=== PATIENT | female | born 1960 | race Caucasian/White ===

== ENCOUNTER 2019-05-23 12:40 | Day surgery (SDC) | payer BC ==
[~2019-05-23] VITALS: Ht 144.8 cm; Wt 47.0 kg
[~2019-05-23 12:40] MED LIST: PROPOFOL 10 MG/ML, 20ML ONE
[2019-05-23] MEDS ORDERED: PLEASE ENTER HEIGHT AND WEIGHT MC SCH (14:00)
[2019-05-23] MEDS ORDERED: SODIUM CHLORIDE 0.9% 1,000 ML IV ONE (14:00)
[2019-05-23] MEDS ORDERED: ROSU10TA26 PO (14:00)
[2019-05-23] MEDS ORDERED: VALS1TAB25 PO (14:02)
[2019-05-23 14:06] VITALS: BP 135/50
== END 2019-05-23 16:38 | disposition home or self-care (01) ==
LOC: CACL 12:40
PROVIDERS: ATTEND Internal Medicine Cardiovascular Disease
DX: I08.0 Rheumatic disorders of both mitral and aortic valves (principal); I10 Essential (primary) hypertension
CPT/HCPCS: 93312; 93325; J2704

== ENCOUNTER 2019-07-23 08:58 | Inpatient (IN) | payer BC ==
[~2019-07-23] VITALS: Ht 144.8 cm; Wt 52.3 kg
[~2019-07-23 08:58] MED LIST changes: -PROPOFOL 10 MG/ML, 20ML ONE; +ROSU10TA26 PO; +VALS1TAB25 PO
[2019-07-23 09:21] VITALS: BP 120/61
[2019-07-23] MEDS ORDERED: PLEASE ENTER HEIGHT AND WEIGHT MC SCH (09:30)
[2019-07-23 09:46] LABS: MEAN CORPUSCULAR HEMOGLOBIN 31.1 pg (27.0-34.8); MEAN CORPUSCULAR HGB CONC 34.1 g/dL (32.4-35.8); MEAN CORPUSCULAR VOLUME 91.1 fL (80-100); MEAN PLATELET VOLUME 8.4 fL (7.4-10.4); PLATELET COUNT 186 x10^3/uL (130-400); RED BLOOD COUNT 4.58 x10^6/uL (3.82-5.3); RED CELL DISTRIBUTION WIDTH 13.1 % (9.6-15.2)
[2019-07-23 09:55] LABS: ANION GAP 5 mmol/L (5-15); CALCIUM 8.8 mg/dL (8.5-10.1); CHLORIDE 107 mmol/L (98-107); CREATININE 0.65 mg/dL (0.55-1.02)
[2019-07-23 10:02] LABS: MD YES
[2019-07-23 10:04] LABS: BAND#(MANUAL) 0.05 x10^3/uL; BANDS%(MANUAL) 1 % (0-7); BASOS#(MANUAL) 0.05 x10^3/uL (0-0.1); BASOS% (MANUAL) 1 % (0-1); EOS#(MANUAL) 0.23 x10^3/uL (0.0-0.4); EOS% (MANUAL) 5 % (1-7); LYMPH#(MANUAL) 1.85 x10^3/uL (1-3.4); LYMPHS% (MANUAL) 41 % (22-44); MONOS#(MANUAL) 0.32 x10^3/uL (0.3-2.7); MONOS% (MANUAL) 7 % (2-9); SEG#(MANUAL) 2.03 x10^3/uL (1.8-6.8); SEGS% (MANUAL) 45 % (42-75)
[2019-07-23 10:05] LABS: <PLATELET ESTIMATE> ADEQUATE; <PLT MORPHOLOGY> NORMAL PLT MORPH; <RBC MORPHOLOGY> NORMAL
[2019-07-23] MEDS ORDERED: FENTANYL PF 100 MCG/2ML ONE ×2 (10:42→12:32)
[2019-07-23] MEDS ORDERED: MIDAZOLAM 1 MG/ML, 2ML ONE ×2 (10:42→12:44)
[2019-07-23] MEDS ORDERED: LIDOCAINE 2%, 20ML ONE (10:42)
[2019-07-23] MEDS ORDERED: VERAPAMIL 2.5 MG/ML, 2ML ONE (12:00)
[2019-07-23] MEDS ORDERED: HEPARIN 1,000 UNITS/ML, 10ML ONE (12:00)
[2019-07-23] MEDS: SODIUM CHLORIDE 0.9% 1,000 ML IV SCH ×7 (13:21→22:54)
[2019-07-23] MEDS ORDERED: HEPARIN 5,000 UNITS/ML, 1ML IV PRN (15:00)
[2019-07-23] MEDS ORDERED: HEPARIN 25,000 UNITS/250ML PMX 250 ML IV PRN (15:00)
[2019-07-23] MEDS: HYDROCHLOROTHIAZIDE 12.5 MG CAPSULE PO SCH (15:13)
[2019-07-23] MEDS: LOSARTAN 100 MG TAB PO SCH (15:53)
[2019-07-23] MEDS: ACETAMINOPHEN 325 MG TABLET PO PRN (18:44)
[2019-07-23 20:44] VITALS: BP 103/65
[2019-07-23] MEDS: ASPIRIN 81 MG TABLET EC PO SCH (21:00)
[2019-07-23] MEDS: ATORVASTATIN 40 MG TABLET PO SCH (21:00)
[2019-07-24 00:43] VITALS: BP 104/57
[2019-07-24] MEDS: SODIUM CHLORIDE 0.9% 1,000 ML IV SCH ×5 (01:03→22:01)
[2019-07-24 06:19] LABS: ANION GAP 13 mmol/L (5-15); CALCIUM 7.9 mg/dL (8.5-10.1); CHLORIDE 106 mmol/L (98-107)
[2019-07-24 06:22] LABS: CREATININE 0.48 mg/dL (0.55-1.02)
[2019-07-24 06:46] VITALS: BP 95/54
[2019-07-24] MEDS: LOSARTAN 100 MG TAB PO SCH (09:00)
[2019-07-24] MEDS: HYDROCHLOROTHIAZIDE 12.5 MG CAPSULE PO SCH (09:19)
[2019-07-24] MEDS: ASPIRIN 81 MG TABLET EC PO SCH (09:19)
[2019-07-24] MEDS ORDERED: BUPIVACAINE/PF-EPI 0.5% 1:200K ONE (09:55)
[2019-07-24] MEDS ORDERED: THROMBIN 20,000 UNIT VIAL TP ONE (09:56)
[2019-07-24] MEDS ORDERED: HEPARIN 1,000 UNITS/ML, 10ML ONE (09:56)
[2019-07-24] MEDS ORDERED: CHLORHEXIDINE 15 ML UDC MM STA (11:16)
[2019-07-24] MEDS ORDERED: FENTANYL PF 250 MCG/5ML ONE (11:54)
[2019-07-24] MEDS ORDERED: SUCCINYLCHOLINE 20 MG/ML, 10ML ONE (11:56)
[2019-07-24] MEDS ORDERED: PROPOFOL 10 MG/ML, 20ML ONE (11:59)
[2019-07-24] MEDS ORDERED: PHENYLEPHRINE 10 MG/ML ONE (11:59)
[2019-07-24] MEDS ORDERED: EPINEPHRINE 1 MG/ML, 1ML ONE (12:16)
[2019-07-24] MEDS ORDERED: ROCURONIUM 10 MG/ML,10ML ONE (12:16)
[2019-07-24] MEDS ORDERED: EPHEDRINE 50 MG/ML, 1ML ONE (12:16)
[2019-07-24] MEDS ORDERED: CEFAZOLIN 1,000 MG ONE (12:16)
[2019-07-24] MEDS ORDERED: DEXAMETHASONE 4 MG/ML, 1ML ONE ×2 (12:31)
[2019-07-24] MEDS ORDERED: BUPIVACAINE/PF-EPI 0.5% 1:200K INFIL ONE (12:56)
[2019-07-24] MEDS ORDERED: HEPARIN 1,000 UNITS/ML, 10ML IV ONE (12:56)
[2019-07-24] MEDS ORDERED: MEPERIDINE/PF 25MG/ML,1ML IVPush PRN (13:00)
[2019-07-24] MEDS ORDERED: ACETAMINOPHEN 325 MG TABLET PO PRN (13:00)
[2019-07-24] MEDS ORDERED: LABETALOL 5MG/ML, 20ML IV PRN (13:00)
[2019-07-24] MEDS ORDERED: PROMETHAZINE 25 MG/ML, 1ML IV PRN (13:00)
[2019-07-24] MEDS ORDERED: HYDROmorphone 2 MG/ML, 1ML IVPush PRN (13:00)
[2019-07-24] MEDS ORDERED: FENTANYL PF 100 MCG/2ML IV PRN (13:00)
[2019-07-24] MEDS ORDERED: ONDANSETRON 2MG/ML, 2ML IV PRN (13:00)
[2019-07-24] MEDS ORDERED: hydrALAzine 20 MG/ML, 1ML IV PRN (13:00)
[2019-07-24] MEDS ORDERED: OXYcodone 5 MG/5 ML ORAL.SOL UDC PO PRN (13:00)
[2019-07-24] MEDS ORDERED: SUGAMMADEX 200 MG/2 ML IVPush ONE (14:06)
[2019-07-24] MEDS ORDERED: ONDANSETRON 2MG/ML, 2ML ONE (14:07)
[2019-07-24] MEDS ORDERED: PROTAMINE SULFATE 10 MG/ML, 25ML ONE (14:12)
[2019-07-24] MEDS: CLOPIDOGREL 75 MG TABLET PO SCH (15:09)
[2019-07-24 15:59] VITALS: BP 132/67
[2019-07-24 20:27] VITALS: BP 115/55
[2019-07-24] MEDS: ATORVASTATIN 40 MG TABLET PO SCH (22:00)
[2019-07-25 02:43] VITALS: BP 116/60
[2019-07-25] MEDS: SODIUM CHLORIDE 0.9% 1,000 ML IV SCH (05:43)
[2019-07-25 07:47] VITALS: BP 108/47
[2019-07-25] MEDS: ASPIRIN 81 MG TABLET EC PO SCH (08:42)
[2019-07-25] MEDS: LOSARTAN 50MG TABLET PO SCH (08:43)
[2019-07-25] MEDS: CLOPIDOGREL 75 MG TABLET PO SCH (08:43)
[2019-07-25] MEDS: HYDROCHLOROTHIAZIDE 12.5 MG CAPSULE PO SCH (08:44)
[2019-07-25 12:41] VITALS: BP 114/59
[2019-07-25] MEDS ORDERED: POLYETHYLENE GLYCOL 17 GM PACKET PO ONE (16:00)
[2019-07-25] MEDS ORDERED: DOCUSATE 100 MG CAPSULE PO PRN (16:00)
[2019-07-25] MEDS ORDERED: FUROSEMIDE 40 MG/4 ML IV ONE (16:30)
[2019-07-25] MEDS ORDERED: GUAIFENESIN/DM 200-20MG, 10ML UDC PO PRN (16:30)
[2019-07-25 19:51] VITALS: BP 114/61
[2019-07-25] MEDS ORDERED: POTASSIUM CHLORIDE 20 MEQ PACKET PO SCH (21:00)
[2019-07-25] MEDS: ATORVASTATIN 40 MG TABLET PO SCH (21:12)
[2019-07-26 01:09] VITALS: BP 117/57
[2019-07-26] MEDS: ACETAMINOPHEN 325 MG TABLET PO PRN (06:48)
[2019-07-26 07:59] VITALS: BP 113/57
[2019-07-26] MEDS: LOSARTAN 50MG TABLET PO SCH (08:33)
[2019-07-26] MEDS: CLOPIDOGREL 75 MG TABLET PO SCH (08:34)
[2019-07-26] MEDS: ASPIRIN 81 MG TABLET EC PO SCH (08:34)
[2019-07-26] MEDS: HYDROCHLOROTHIAZIDE 12.5 MG CAPSULE PO SCH (08:34)
[2019-07-26] MEDS ORDERED: CLOP75TA PO (10:14)
[2019-07-26] MEDS ORDERED: ACET325T26 PO (10:14)
[2019-07-26] MEDS ORDERED: ASPI81TA45 PO (10:14)
== END 2019-07-26 12:46 | disposition home or self-care (01) | DRG 286 ==
LOC: CACL 08:58 → ORIP 13:21 → 5SO 14:00
PROVIDERS: ADMIT Internal Medicine Cardiovascular Disease; ATTEND Internal Medicine Cardiovascular Disease
PROC: 4A023N8 Measurement of Cardiac Sampling and Pressure, Bilateral, Percutaneous Approach (ICD-10-PCS; principal; 2019-07-23)
PROC: B2111ZZ Fluoroscopy of Multiple Coronary Arteries using Low Osmolar Contrast (ICD-10-PCS; 2019-07-23)
PROC: B2151ZZ Fluoroscopy of Left Heart using Low Osmolar Contrast (ICD-10-PCS; 2019-07-23)
PROC: B2161ZZ Fluoroscopy of Right and Left Heart using Low Osmolar Contrast (ICD-10-PCS; 2019-07-24)
PROC: B4101ZZ Fluoroscopy of Abdominal Aorta using Low Osmolar Contrast (ICD-10-PCS; 2019-07-24)
PROC: B41D1ZZ Fluoroscopy of Aorta and Bilateral Lower Extremity Arteries using Low Osmolar Contrast (ICD-10-PCS; 2019-07-24)
PROC: B24BZZ3 Ultrasonography of Heart with Aorta, Intravascular (ICD-10-PCS; 2019-07-24)
PROC: B44LZZ3 Ultrasonography of Femoral Artery, Intravascular (ICD-10-PCS; 2019-07-24)
DX: I08.3 Combined rheumatic disorders of mitral, aortic and tricuspid valves (principal); I77.72 Dissection of iliac artery; E78.5 Hyperlipidemia, unspecified; M19.90 Unspecified osteoarthritis, unspecified site; I50.9 Heart failure, unspecified; M41.9 Scoliosis, unspecified; I11.0 Hypertensive heart disease with heart failure; Z79.899 Other long term (current) drug therapy
CPT/HCPCS: 36415; 37252; 93460; J3490; 37221; 75630; 76937; 80048; 82962; 85025; 85520; 99156; 99157; C1725; C1760; C1769; C1894; G0378; J0171; J0690; J1100; J1644; J2250; J2405; J2704; J2720; J3010; C1751; C1753; C1876; J0330; J2370; J7030; Q9967

== ENCOUNTER 2019-09-20 11:30 | Inpatient (IN) | payer BC ==
[~2019-09-20] VITALS: Ht 144.8 cm; Wt 41.5 kg
[~2019-09-20 11:30] MED LIST changes: +ACET325T26 PO; +ASPI81TA45 PO; +CLOP75TA PO
[2019-09-20] MEDS ORDERED: MULT-658 PO (12:52)
[2019-09-20] MEDS ORDERED: ASPI-496 PO (12:52)
[2019-09-20] MEDS ORDERED: LACT1CAP35 PO (12:52)
[2019-09-20] MEDS ORDERED: VALS1TAB25 PO (12:52)
[2019-09-20 13:26] LABS: MICROSCOPIC INDICATED
[2019-09-20 13:35] LABS: BASOPHILS # (AUTO) 0.04 x10^3/uL (0-0.1); BASOPHILS % (AUTO) 1 % (0-1); EOSINOPHILS # (AUTO) 0.13 x10^3/uL (0-0.4); EOSINOPHILS % (AUTO) 2 % (1-7); LYMPHOCYTES # (AUTO) 1.74 x10^3/uL (1-3.4); LYMPHOCYTES % (AUTO) 29 % (22-44); MD NO; MEAN CORPUSCULAR HEMOGLOBIN 30.4 pg (27.0-34.8); MEAN CORPUSCULAR VOLUME 92.2 fL (80-100); MEAN PLATELET VOLUME 8.5 fL (7.4-10.4); MONOCYTES # (AUTO) 0.47 x10^3/uL (0.2-0.8); MONOCYTES % (AUTO) 8 % (2-9); NEUTROPHILS # (AUTO) 3.71 x10^3/uL (1.8-6.8); NEUTROPHILS % (AUTO) 61 % (42-75); PLATELET COUNT 213 x10^3/uL (130-400); RED BLOOD COUNT 4.72 x10^6/uL (3.82-5.3); RED CELL DISTRIBUTION WIDTH 13.5 % (9.6-15.2)
[2019-09-20 13:43] LABS: INTERNATIONAL NORMALIZED RATIO 0.96 (0.93-1.1); PROTHROMBIN TIME 10.2 Seconds (9.6-11.5)
[2019-09-20 13:45] LABS: ALANINE AMINOTRANSFERASE 26 U/L (12-78); ALBUMIN 3.9 g/dL (3.4-5.0); ANION GAP 5 mmol/L (5-15); CALCIUM 8.7 mg/dL (8.5-10.1); CHLORIDE 104 mmol/L (98-107); CREATININE 0.77 mg/dL (0.55-1.02)
[2019-09-20 13:47] LABS: ALKALINE PHOSPHATASE 81 U/L (45-117); BILIRUBIN,TOTAL 0.4 mg/dL (0.2-1.0); TOTAL PROTEIN 7.7 g/dL (6.4-8.2)
[2019-09-21 04:57] VITALS: BP_SYST 145; BP_SYST 146; BP_DIAS 70; BP_DIAS 72
[2019-09-21] MEDS ORDERED: CHLORHEXIDINE 15 ML UDC MM SCH (05:00)
[2019-09-21] MEDS ORDERED: DO NOT GIVE MC SCH (05:00)
[2019-09-21] MEDS ORDERED: DO NOT GIVE XX SCH (05:00)
[2019-09-21] MEDS ORDERED: INSULIN LISPRO 100 UNITS/ML, PEN SQ-INSULIN SCH (05:00)
[2019-09-21] MEDS: MUPIROCIN OINT 2%, 22GM TP SCH ×2 (06:03→20:24)
[2019-09-21] MEDS ORDERED: FENTANYL PF 250 MCG/5ML ONE ×4 (06:42)
[2019-09-21] MEDS ORDERED: MIDAZOLAM 10MG/2 ML ONE (06:42)
[2019-09-21] MEDS ORDERED: PHENYLEPHRINE 50 MG in SODIUM CHLORIDE 0.9% 245 ML IV PRN ×2 (07:09→07:30)
[2019-09-21] MEDS ORDERED: REGULAR INSULIN 100 UNITS in SODIUM CHLORIDE 0.9% 99 ML IV PRN ×2 (07:09→07:30)
[2019-09-21] MEDS ORDERED: VASOPRESSIN 20 UNIT in SODIUM CHLORIDE 0.9% 99 ML IV PRN (07:09)
[2019-09-21] MEDS ORDERED: DOBUTAMINE 250 MG in SODIUM CHLORIDE 0.9% 230 ML IV PRN (07:09)
[2019-09-21] MEDS ORDERED: SODIUM CHLORIDE 0.9% 1,000 ML IV PRN (07:09)
[2019-09-21] MEDS ORDERED: VANCOMYCIN 700 MG in SODIUM CHLORIDE 0.9% 250 ML IVPB SCH (07:09)
[2019-09-21] MEDS ORDERED: NITROGLYCERIN/D5W PMX 250 ML IV PRN (07:09)
[2019-09-21] MEDS ORDERED: DEXMEDETOMIDINE 200 MCG in SODIUM CHLORIDE 0.9% 48 ML IV PRN ×2 (07:09→07:30)
[2019-09-21] MEDS ORDERED: GLUCAGON 1 MG IM PRN (07:30)
[2019-09-21] MEDS ORDERED: morphine SULFATE 10 MG/ML, 1ML IVPush PRN (07:30)
[2019-09-21] MEDS ORDERED: BISACODYL 10 MG SUPP PR PRN (07:30)
[2019-09-21] MEDS ORDERED: LACTATED RINGERS 1,000 ML IV PRN (07:30)
[2019-09-21] MEDS ORDERED: SODIUM BICARB 8.4%, 50ML SYRINGE IV PRN (07:30)
[2019-09-21] MEDS ORDERED: INSULIN REGULAR 100 UNITS/ML, 3ML VIAL IVPush PRN (07:30)
[2019-09-21] MEDS ORDERED: HYDROcodone/APAP 5/325 TABLET PO PRN (07:30)
[2019-09-21] MEDS ORDERED: DEXTROSE 50%, 50ML SYRINGE IVPush PRN (07:30)
[2019-09-21] MEDS ORDERED: CEFUROXIME 1.5 GM in SODIUM CHLORIDE 0.9% 50 ML IVPB PRN (07:30)
[2019-09-21] MEDS ORDERED: VANCOMYCIN 700 MG in SODIUM CHLORIDE 0.9% 250 ML IV PRN (07:30)
[2019-09-21] MEDS ORDERED: POTASSIUM CHLORIDE 80 MEQ, SODIUM BICARBONATE 8.4% 10 MEQ, MAGNESIUM SULFATE 0.5 GM, LI... IV PRN (07:30)
[2019-09-21] MEDS ORDERED: MIDAZOLAM 1 MG/ML, 5ML IVPush PRN (07:30)
[2019-09-21] MEDS ORDERED: MANNITOL PMX 20% 500 ML IVPB PRN (07:30)
[2019-09-21] MEDS ORDERED: ACETAMINOPHEN 650 MG SUPP PR PRN (07:30)
[2019-09-21] MEDS ORDERED: DEXTROSE 4 GM TAB.CHEW PO PRN (07:30)
[2019-09-21] MEDS ORDERED: EPINEPHRINE 5 MG in SODIUM CHLORIDE 0.9% 245 ML IV PRN ×2 (07:30)
[2019-09-21] MEDS ORDERED: ALBUMIN HUMAN 5% 500 ML IV PRN (07:30)
[2019-09-21] MEDS ORDERED: PROPOFOL 10 MG/ML, 20ML ONE (08:28)
[2019-09-21] MEDS ORDERED: AMIODARONE 50 MG/ML, 3ML ONE ×2 (08:28→09:53)
[2019-09-21] MEDS ORDERED: PROTAMINE SULFATE 10 MG/ML, 25ML ONE (08:28)
[2019-09-21] MEDS ORDERED: ROCURONIUM 10MG/ML,5ML ONE ×2 (08:29)
[2019-09-21] MEDS ORDERED: AMINOCAPROIC ACID 250 MG/ML, 20ML ONE ×2 (08:29)
[2019-09-21] MEDS ORDERED: ESMOLOL 100 MG/10 ML ONE (08:30)
[2019-09-21] MEDS: MUPIROCIN OINT 2%, 22GM NAS SCH ×2 (09:00→20:24)
[2019-09-21] MEDS: DOCUSATE 100 MG CAPSULE PO SCH ×2 (09:00→20:27)
[2019-09-21] MEDS ORDERED: CALCIUM CHLORIDE 10%, 10ML SYR ONE (10:28)
[2019-09-21] MEDS ORDERED: SODIUM BICARBONATE 1 MEQ/ML, 50ML VIAL ONE (10:58)
[2019-09-21] MEDS ORDERED: ALBUMIN HUMAN 25% 50 ML ONE (10:59)
[2019-09-21] MEDS: KSCALE TO 4.5 IV SCH ×3 (11:00→23:30)
[2019-09-21] MEDS ORDERED: methylPREDNISolone SOD SUCC 125 MG/2 ML ONE (11:00)
[2019-09-21] MEDS ORDERED: HEPARIN 1,000 UNITS/ML, 30ML ONE ×3 (11:01)
[2019-09-21] MEDS ORDERED: LIDOCAINE 2%, 20ML ONE (11:02)
[2019-09-21 11:16] LABS: GLUCOSE BY BLOOD GAS ANALYZER 148 mg/dL (70-110); HEMOGLOBIN BY BLOOD GAS ANALYZ 11.3 g/dL (14.0-18.0); POTASSIUM BY BLOOD GAS ANALYZR 3.2 mmol/L (3.6-5.5)
[2019-09-21 11:31] LABS: INTERNATIONAL NORMALIZED RATIO 1.33 (0.93-1.1); PROTHROMBIN TIME 14.1 Seconds (9.6-11.5)
[2019-09-21] MEDS ORDERED: POTASSIUM CHLORIDE 30 MEQ in SODIUM CHLORIDE 0.9% 100 ML IV ONE (12:00)
[2019-09-21] MEDS: WARFARIN MODERAT DOSE PROTOCOL XX SCH (12:00)
[2019-09-21] MEDS: SODIUM CHLORIDE FLUSH 10ML SYR IVF SCH ×4 (12:20→20:23)
[2019-09-21] MEDS: INSULIN LISPRO 100 UNITS/ML, PEN SQ-INSULIN SCH ×3 (12:20→20:16)
[2019-09-21] MEDS: MAGNESIUM SULFATE 1 GM in SODIUM CHLORIDE 0.9% 100 ML IVPB SCH (12:57)
[2019-09-21] MEDS: FENTANYL PF 100 MCG/2ML IVPush PRN ×2 (13:19→15:00)
[2019-09-21] MEDS: ONDANSETRON 2MG/ML, 2ML IVPush PRN ×2 (14:59→19:06)
[2019-09-21] MEDS: OXYcodone IR 5MG TABLET PO PRN ×2 (17:05→22:44)
[2019-09-21] MEDS: CEFUROXIME 1.5 GM in SODIUM CHLORIDE 0.9% 50 ML IVPB SCH (19:08)
[2019-09-21] MEDS ORDERED: POTASSIUM CHLORIDE PMX 100 ML IV ONE (19:30)
[2019-09-21] MEDS ORDERED: KETOROLAC 30 MG/1 ML IVPush ONE (20:30)
[2019-09-21] MEDS: VANCOMYCIN 700 MG in SODIUM CHLORIDE 0.9% 250 ML IV SCH (21:13)
[2019-09-21] MEDS: PROCHLORPERAZINE 5 MG/ML, 2ML IVPush PRN (21:21)
[2019-09-22] MEDS: OXYcodone IR 5MG TABLET PO PRN (03:57)
[2019-09-22 04:00] VITALS: BP 118/73
[2019-09-22 04:26] LABS: MEAN CORPUSCULAR HEMOGLOBIN 30.4 pg (27.0-34.8); MEAN CORPUSCULAR HGB CONC 33.1 g/dL (32.4-35.8); MEAN CORPUSCULAR VOLUME 91.9 fL (80-100); MEAN PLATELET VOLUME 8.7 fL (7.4-10.4); PLATELET COUNT 98 x10^3/uL (130-400); RED CELL DISTRIBUTION WIDTH 13.8 % (9.6-15.2)
[2019-09-22 04:30] LABS: INTERNATIONAL NORMALIZED RATIO 1.01 (0.93-1.1); PROTHROMBIN TIME 10.7 Seconds (9.6-11.5)
[2019-09-22 04:36] LABS: ALBUMIN 3.2 g/dL (3.4-5.0); ANION GAP 5 mmol/L (5-15); CALCIUM 7.7 mg/dL (8.5-10.1); CHLORIDE 109 mmol/L (98-107); CREATININE 0.42 mg/dL (0.55-1.02)
[2019-09-22 05:52] LABS: BASOPHILS % (AUTO) 0 % (0-1); EOSINOPHILS % (AUTO) 0 % (1-7); LYMPHOCYTES # (AUTO) 0.76 x10^3/uL (1-3.4); LYMPHOCYTES % (AUTO) 5 % (22-44); MD SCAN; MONOCYTES # (AUTO) 0.45 x10^3/uL (0.2-0.8); MONOCYTES % (AUTO) 3 % (2-9); NEUTROPHILS # (AUTO) 12.91 x10^3/uL (1.8-6.8); NEUTROPHILS % (AUTO) 91 % (42-75)
[2019-09-22] MEDS: KSCALE TO 4.5 IV SCH (06:18)
[2019-09-22] MEDS ORDERED: POTASSIUM CHLORIDE PMX 100 ML IV ONE (06:30)
[2019-09-22] MEDS: INSULIN LISPRO 100 UNITS/ML, PEN SQ-INSULIN SCH ×4 (08:04→20:56)
[2019-09-22] MEDS ORDERED: CALCIUM CARBONATE 500 MG TAB.CHEW PO PRN (08:30)
[2019-09-22] MEDS ORDERED: KETOROLAC 30 MG/1 ML IVPush ONE (08:30)
[2019-09-22] MEDS: CEFUROXIME 1.5 GM in SODIUM CHLORIDE 0.9% 50 ML IVPB SCH (09:06)
[2019-09-22] MEDS: MAGNESIUM SULFATE 1 GM in SODIUM CHLORIDE 0.9% 100 ML IVPB SCH (09:08)
[2019-09-22] MEDS: MUPIROCIN OINT 2%, 22GM NAS SCH ×2 (09:29→20:47)
[2019-09-22] MEDS: ASPIRIN 81 MG TABLET EC PO SCH (09:29)
[2019-09-22] MEDS: DOCUSATE 100 MG CAPSULE PO SCH ×2 (09:29→20:46)
[2019-09-22] MEDS: OMEPRAZOLE 20 MG CAPSULE.DR PO SCH (09:29)
[2019-09-22] MEDS: SODIUM CHLORIDE FLUSH 10ML SYR IVF SCH ×4 (09:29→21:00)
[2019-09-22] MEDS: CHLORHEXIDINE 15 ML UDC MM SCH ×2 (09:30→20:45)
[2019-09-22] MEDS: WARFARIN BIOPROSTHETIC VALVE PROTOCOL 2-3 XX SCH (09:30)
[2019-09-22] MEDS: MUPIROCIN OINT 2%, 22GM TP SCH (09:30)
[2019-09-22] MEDS: FUROSEMIDE 20 MG/2 ML IV SCH (09:44)
[2019-09-22] MEDS: VANCOMYCIN 700 MG in SODIUM CHLORIDE 0.9% 250 ML IV SCH (10:19)
[2019-09-22] MEDS: WARFARIN MODERAT DOSE PROTOCOL XX SCH (11:26)
[2019-09-22] MEDS: HYDROcodone/APAP 10/325 MG TABLET PO PRN ×2 (13:15→20:47)
[2019-09-22] MEDS: POTASSIUM CHLORIDE 10 MEQ TABLET.ER PO SCH (17:16)
[2019-09-22] MEDS ORDERED: WARFARIN 7.5 MG TABLET PO-COUM ONE (18:00)
[2019-09-22 20:19] VITALS: BP 137/80
[2019-09-22] MEDS ORDERED: MELATONIN 3 MG TABLET PO PRN (20:30)
[2019-09-23] VITALS: BP 113/72
[2019-09-23] MEDS: ONDANSETRON 2MG/ML, 2ML IVPush PRN ×3 (01:40→17:03)
[2019-09-23] MEDS: HYDROcodone/APAP 10/325 MG TABLET PO PRN ×2 (02:51→08:11)
[2019-09-23] MEDS: ACETAMINOPHEN 325 MG TABLET PO PRN (03:49)
[2019-09-23 04:44] LABS: INTERNATIONAL NORMALIZED RATIO 1.07 (0.93-1.1); PROTHROMBIN TIME 11.4 Seconds (9.6-11.5)
[2019-09-23 04:47] LABS: ANION GAP 5 mmol/L (5-15); CALCIUM 7.5 mg/dL (8.5-10.1); CHLORIDE 96 mmol/L (98-107)
[2019-09-23 04:48] LABS: CREATININE 0.39 mg/dL (0.55-1.02); MEAN CORPUSCULAR HEMOGLOBIN 30.6 pg (27.0-34.8); MEAN CORPUSCULAR HGB CONC 33.4 g/dL (32.4-35.8); MEAN CORPUSCULAR VOLUME 91.8 fL (80-100); MEAN PLATELET VOLUME 8.7 fL (7.4-10.4); PLATELET COUNT 84 x10^3/uL (130-400); RED BLOOD COUNT 3.35 x10^6/uL (3.82-5.3); RED CELL DISTRIBUTION WIDTH 13.4 % (9.6-15.2)
[2019-09-23] MEDS: OMEPRAZOLE 20 MG CAPSULE.DR PO SCH (05:08)
[2019-09-23 05:17] LABS: BASOPHILS # (AUTO) 0.03 x10^3/uL (0-0.1); BASOPHILS % (AUTO) 0 % (0-1); EOSINOPHILS # (AUTO) 0.01 x10^3/uL (0-0.4); EOSINOPHILS % (AUTO) 0 % (1-7); LYMPHOCYTES # (AUTO) 1.15 x10^3/uL (1-3.4); LYMPHOCYTES % (AUTO) 9 % (22-44); MONOCYTES # (AUTO) 0.61 x10^3/uL (0.2-0.8); MONOCYTES % (AUTO) 5 % (2-9); NEUTROPHILS # (AUTO) 11.48 x10^3/uL (1.8-6.8); NEUTROPHILS % (AUTO) 87 % (42-75)
[2019-09-23 05:18] LABS: MD SCAN
[2019-09-23] MEDS: INSULIN LISPRO 100 UNITS/ML, PEN SQ-INSULIN SCH ×4 (07:00→20:50)
[2019-09-23] MEDS ORDERED: MELATONIN 3 MG TABLET PO PRN (07:00)
[2019-09-23 07:19] VITALS: BP 145/84
[2019-09-23] MEDS: CHLORHEXIDINE 15 ML UDC MM SCH ×2 (08:11→20:45)
[2019-09-23] MEDS: ASPIRIN 81 MG TABLET EC PO SCH (08:11)
[2019-09-23] MEDS: POTASSIUM CHLORIDE 10 MEQ TABLET.ER PO SCH ×2 (08:11→17:03)
[2019-09-23] MEDS: FUROSEMIDE 20 MG/2 ML IV SCH (08:11)
[2019-09-23] MEDS: DOCUSATE 100 MG CAPSULE PO SCH ×2 (08:12→20:46)
[2019-09-23] MEDS: SODIUM CHLORIDE FLUSH 10ML SYR IVF SCH ×4 (08:12→20:45)
[2019-09-23] MEDS: MUPIROCIN OINT 2%, 22GM NAS SCH ×2 (08:13→20:45)
[2019-09-23] MEDS: WARFARIN BIOPROSTHETIC VALVE PROTOCOL 2-3 XX SCH (09:00)
[2019-09-23] MEDS: CARVEDILOL 6.25 MG TABLET PO SCH ×2 (11:02→20:46)
[2019-09-23] MEDS: MAGNESIUM SULFATE 1 GM in SODIUM CHLORIDE 0.9% 100 ML IVPB SCH (11:02)
[2019-09-23] MEDS: SUCRALFATE 1 GM TABLET PO SCH ×3 (11:02→20:45)
[2019-09-23] MEDS: WARFARIN MODERAT DOSE PROTOCOL XX SCH (11:02)
[2019-09-23] MEDS: PROCHLORPERAZINE 5 MG/ML, 2ML IVPush PRN (12:51)
[2019-09-23 12:54] LABS: MEAN CORPUSCULAR HGB CONC 33.9 g/dL (32.4-35.8); MEAN CORPUSCULAR VOLUME 91.3 fL (80-100); MEAN PLATELET VOLUME 7.9 fL (7.4-10.4); PLATELET COUNT 101 x10^3/uL (130-400); RED BLOOD COUNT 3.44 x10^6/uL (3.82-5.3); RED CELL DISTRIBUTION WIDTH 13.3 % (9.6-15.2)
[2019-09-23 13:12] LABS: BASOPHILS # (AUTO) 0.05 x10^3/uL (0-0.1); BASOPHILS % (AUTO) 0 % (0-1); EOSINOPHILS % (AUTO) 0 % (1-7); LYMPHOCYTES # (AUTO) 0.96 x10^3/uL (1-3.4); LYMPHOCYTES % (AUTO) 7 % (22-44); MD SCAN; MONOCYTES # (AUTO) 0.56 x10^3/uL (0.2-0.8); MONOCYTES % (AUTO) 4 % (2-9); NEUTROPHILS # (AUTO) 11.44 x10^3/uL (1.8-6.8); NEUTROPHILS % (AUTO) 88 % (42-75)
[2019-09-23 14:23] VITALS: BP 142/81
[2019-09-23] MEDS ORDERED: WARFARIN 7.5 MG TABLET PO-COUM ONE (18:00)
[2019-09-23 19:34] VITALS: BP 129/79
[2019-09-24 00:20] VITALS: BP 113/68
[2019-09-24] MEDS: HYDROcodone/APAP 10/325 MG TABLET PO PRN (02:40)
[2019-09-24] MEDS: OMEPRAZOLE 20 MG CAPSULE.DR PO SCH (06:14)
[2019-09-24] MEDS: CARVEDILOL 6.25 MG TABLET PO SCH ×2 (06:16→18:27)
[2019-09-24 06:26] LABS: BASOPHILS % (AUTO) 0 % (0-1); EOSINOPHILS # (AUTO) 0.06 x10^3/uL (0-0.4); EOSINOPHILS % (AUTO) 1 % (1-7); LYMPHOCYTES # (AUTO) 1.25 x10^3/uL (1-3.4); LYMPHOCYTES % (AUTO) 11 % (22-44); MD NO; MEAN CORPUSCULAR HEMOGLOBIN 30.4 pg (27.0-34.8); MEAN CORPUSCULAR HGB CONC 33.2 g/dL (32.4-35.8); MEAN CORPUSCULAR VOLUME 91.6 fL (80-100); MEAN PLATELET VOLUME 8.3 fL (7.4-10.4); MONOCYTES # (AUTO) 0.68 x10^3/uL (0.2-0.8); MONOCYTES % (AUTO) 6 % (2-9); NEUTROPHILS # (AUTO) 9.33 x10^3/uL (1.8-6.8); NEUTROPHILS % (AUTO) 82 % (42-75); PLATELET COUNT 107 x10^3/uL (130-400); RED BLOOD COUNT 3.36 x10^6/uL (3.82-5.3); RED CELL DISTRIBUTION WIDTH 13.3 % (9.6-15.2)
[2019-09-24 06:35] LABS: ANION GAP 9 mmol/L (5-15); CALCIUM 7.3 mg/dL (8.5-10.1); CHLORIDE 93 mmol/L (98-107); CREATININE 0.33 mg/dL (0.55-1.02)
[2019-09-24 06:42] VITALS: BP 125/77
[2019-09-24] MEDS: ONDANSETRON 2MG/ML, 2ML IVPush PRN (06:43)
[2019-09-24] MEDS: INSULIN LISPRO 100 UNITS/ML, PEN SQ-INSULIN SCH (07:00)
[2019-09-24] MEDS: WARFARIN BIOPROSTHETIC VALVE PROTOCOL 2-3 XX SCH (09:00)
[2019-09-24] MEDS: SUCRALFATE 1 GM TABLET PO SCH ×4 (09:10→21:06)
[2019-09-24] MEDS: FUROSEMIDE 20 MG/2 ML IV SCH (09:10)
[2019-09-24] MEDS: DOCUSATE 100 MG CAPSULE PO SCH ×2 (09:10→21:07)
[2019-09-24] MEDS: POTASSIUM CHLORIDE 10 MEQ TABLET.ER PO SCH ×2 (09:10→17:10)
[2019-09-24] MEDS: MUPIROCIN OINT 2%, 22GM NAS SCH ×2 (09:14→21:06)
[2019-09-24] MEDS: SODIUM CHLORIDE FLUSH 10ML SYR IVF SCH ×2 (09:15→21:06)
[2019-09-24] MEDS: WARFARIN MODERAT DOSE PROTOCOL XX SCH (10:27)
[2019-09-24 12:44] LABS: INTERNATIONAL NORMALIZED RATIO 2.3 (0.93-1.1); PROTHROMBIN TIME 24.6 Seconds (9.6-11.5)
[2019-09-24 13:45] VITALS: BP 109/72
[2019-09-24] MEDS: BISACODYL 5 MG EC TABLET PO PRN (17:10)
[2019-09-24] MEDS ORDERED: WARFARIN 2.5 MG TABLET PO-COUM ONE (18:00)
[2019-09-24 18:42] VITALS: BP 115/74
[2019-09-25 00:27] VITALS: BP 133/83
[2019-09-25] MEDS: ACETAMINOPHEN 325 MG TABLET PO PRN ×2 (02:22→21:05)
[2019-09-25 04:58] LABS: BASOPHILS # (AUTO) 0.03 x10^3/uL (0-0.1); BASOPHILS % (AUTO) 0 % (0-1); EOSINOPHILS # (AUTO) 0.13 x10^3/uL (0-0.4); EOSINOPHILS % (AUTO) 1 % (1-7); LYMPHOCYTES # (AUTO) 1.32 x10^3/uL (1-3.4); LYMPHOCYTES % (AUTO) 14 % (22-44); MD NO; MEAN CORPUSCULAR HEMOGLOBIN 30.5 pg (27.0-34.8); MEAN CORPUSCULAR HGB CONC 33.5 g/dL (32.4-35.8); MEAN CORPUSCULAR VOLUME 91.1 fL (80-100); MEAN PLATELET VOLUME 8.1 fL (7.4-10.4); MONOCYTES # (AUTO) 0.83 x10^3/uL (0.2-0.8); MONOCYTES % (AUTO) 9 % (2-9); NEUTROPHILS # (AUTO) 7.17 x10^3/uL (1.8-6.8); NEUTROPHILS % (AUTO) 76 % (42-75); PLATELET COUNT 145 x10^3/uL (130-400); RED BLOOD COUNT 3.74 x10^6/uL (3.82-5.3); RED CELL DISTRIBUTION WIDTH 13.3 % (9.6-15.2)
[2019-09-25 05:02] LABS: INTERNATIONAL NORMALIZED RATIO 1.94 (0.93-1.1); PROTHROMBIN TIME 20.7 Seconds (9.6-11.5)
[2019-09-25 05:07] LABS: ANION GAP 5 mmol/L (5-15); CALCIUM 7.7 mg/dL (8.5-10.1); CHLORIDE 92 mmol/L (98-107)
[2019-09-25 05:08] LABS: CREATININE 0.39 mg/dL (0.55-1.02)
[2019-09-25] MEDS: OMEPRAZOLE 20 MG CAPSULE.DR PO SCH (05:35)
[2019-09-25] MEDS: CARVEDILOL 6.25 MG TABLET PO SCH ×2 (05:35→17:58)
[2019-09-25 06:52] VITALS: BP 109/73
[2019-09-25] MEDS: FUROSEMIDE 20 MG/2 ML IV SCH (08:25)
[2019-09-25] MEDS: DOCUSATE 100 MG CAPSULE PO SCH ×2 (08:25→21:06)
[2019-09-25] MEDS: SUCRALFATE 1 GM TABLET PO SCH ×4 (08:25→21:06)
[2019-09-25] MEDS: WARFARIN BIOPROSTHETIC VALVE PROTOCOL 2-3 XX SCH (08:26)
[2019-09-25] MEDS: MUPIROCIN OINT 2%, 22GM NAS SCH ×2 (08:26→21:06)
[2019-09-25] MEDS: POTASSIUM CHLORIDE 10 MEQ TABLET.ER PO SCH ×2 (08:26→16:38)
[2019-09-25] MEDS: SODIUM CHLORIDE FLUSH 10ML SYR IVF SCH ×2 (08:26→21:06)
[2019-09-25] MEDS: BISACODYL 5 MG EC TABLET PO PRN (08:52)
[2019-09-25] MEDS ORDERED: POTASSIUM CHLORIDE 10 MEQ TABLET.ER PO ONE (09:00)
[2019-09-25] MEDS: WARFARIN MODERAT DOSE PROTOCOL XX SCH (11:27)
[2019-09-25 13:02] VITALS: BP 120/77
[2019-09-25] MEDS ORDERED: WARFARIN 5 MG TABLET PO-COUM ONE (18:00)
[2019-09-25 18:24] VITALS: BP 106/73
[2019-09-26 01:05] VITALS: BP 111/76
[2019-09-26 03:41] LABS: BASOPHILS % (AUTO) 1 % (0-1); EOSINOPHILS # (AUTO) 0.22 x10^3/uL (0-0.4); EOSINOPHILS % (AUTO) 3 % (1-7); LYMPHOCYTES # (AUTO) 1.81 x10^3/uL (1-3.4); LYMPHOCYTES % (AUTO) 23 % (22-44); MD NO; MEAN CORPUSCULAR HEMOGLOBIN 30.3 pg (27.0-34.8); MEAN CORPUSCULAR HGB CONC 33.2 g/dL (32.4-35.8); MEAN CORPUSCULAR VOLUME 91.2 fL (80-100); MEAN PLATELET VOLUME 7.7 fL (7.4-10.4); MONOCYTES # (AUTO) 0.96 x10^3/uL (0.2-0.8); MONOCYTES % (AUTO) 12 % (2-9); NEUTROPHILS # (AUTO) 4.98 x10^3/uL (1.8-6.8); NEUTROPHILS % (AUTO) 62 % (42-75); PLATELET COUNT 191 x10^3/uL (130-400); RED BLOOD COUNT 3.92 x10^6/uL (3.82-5.3); RED CELL DISTRIBUTION WIDTH 13.4 % (9.6-15.2)
[2019-09-26 03:43] LABS: ANION GAP 4 mmol/L (5-15); CALCIUM 7.9 mg/dL (8.5-10.1); CHLORIDE 96 mmol/L (98-107); CREATININE 0.42 mg/dL (0.55-1.02)
[2019-09-26] MEDS: OMEPRAZOLE 20 MG CAPSULE.DR PO SCH (05:08)
[2019-09-26] MEDS: ACETAMINOPHEN 325 MG TABLET PO PRN ×2 (05:09→10:23)
[2019-09-26] MEDS: CARVEDILOL 6.25 MG TABLET PO SCH (05:09)
[2019-09-26] MEDS: SUCRALFATE 1 GM TABLET PO SCH ×2 (06:25→12:33)
[2019-09-26 06:50] VITALS: BP 106/73
[2019-09-26] MEDS: WARFARIN BIOPROSTHETIC VALVE PROTOCOL 2-3 XX SCH (09:00)
[2019-09-26] MEDS: SODIUM CHLORIDE FLUSH 10ML SYR IVF SCH (09:00)
[2019-09-26] MEDS: DOCUSATE 100 MG CAPSULE PO SCH (09:00)
[2019-09-26] MEDS ORDERED: WARF2.5T32 PO (09:28)
[2019-09-26] MEDS ORDERED: FURO-93 PO (09:28)
[2019-09-26] MEDS ORDERED: SUCR1TAB33 PO (09:28)
[2019-09-26] MEDS ORDERED: OMEP-110 PO (09:28)
[2019-09-26] MEDS ORDERED: HYDR-3237 PO (09:28)
[2019-09-26] MEDS ORDERED: CARV6.2512 PO (09:28)
[2019-09-26] MEDS ORDERED: POTA10TA5 PO (09:28)
[2019-09-26] MEDS: POTASSIUM CHLORIDE 10 MEQ TABLET.ER PO SCH (09:43)
[2019-09-26] MEDS: FUROSEMIDE 20 MG TABLET PO SCH ×2 (09:44→09:53)
[2019-09-26] MEDS: WARFARIN MODERAT DOSE PROTOCOL XX SCH (12:00)
[2019-09-26] MEDS: HYDROcodone/APAP 10/325 MG TABLET PO PRN (12:33)
== END 2019-09-26 14:00 | disposition home or self-care (01) | DRG 267 ==
LOC: UNDOADMIN 11:30 → ORIP 11:30 → 5SO 09-21 04:40 → CCU 09-21 07:08 → 5SO 09-22 17:01 → DCLOUNGE 09-26 13:37
PROVIDERS: ADMIT Thoracic Surgery (Cardiothoracic Vascular Surgery); ATTEND Thoracic Surgery (Cardiothoracic Vascular Surgery)
PROC: 02RF38Z Replacement of Aortic Valve with Zooplastic Tissue, Percutaneous Approach (ICD-10-PCS; 2019-09-21)
PROC: B24BZZ4 Ultrasonography of Heart with Aorta, Transesophageal (ICD-10-PCS; 2019-09-21)
PROC: 30233R1 Transfusion of Nonautologous Platelets into Peripheral Vein, Percutaneous Approach (ICD-10-PCS; 2019-09-21)
PROC: 30233N1 Transfusion of Nonautologous Red Blood Cells into Peripheral Vein, Percutaneous Approach (ICD-10-PCS; 2019-09-21)
PROC: 02UG3JZ Supplement Mitral Valve with Synthetic Substitute, Percutaneous Approach (ICD-10-PCS; principal; 2019-09-21 07:30)
DX: I34.0 Nonrheumatic mitral (valve) insufficiency (principal); Z00.6 Encounter for examination for normal comparison and control in clinical research program; I50.9 Heart failure, unspecified; I11.0 Hypertensive heart disease with heart failure; Z79.01 Long term (current) use of anticoagulants
CPT/HCPCS: 36415; 36600; J3490; S0017; 71045; 71046; 80048; 80053; 81001; 82040; 82330; 82800; 82803; 82810; 82947; 82962; 83036; 83735; 84132; 84295; 85014; 85018; 85025; 85049; 85347; 85610; 85730; 86850; 86900; 86923; 87081; 87635; 88305; 93005; 93312; 93321; 93325; 94002; C1768; G0378; J0171; J0697; J1644; J1815; J1885; J2250; J2405; J2704; J2720; J3010; J3370; J3475; J3480; P9045; P9047; C1751; C1760; J0282; J0780; J1940; J2370; J2930; J7050; P9016

== ENCOUNTER → 2020-05-28 | Outpatient (CLI) | payer BC ==
[~2020-05-28] MED LIST changes: +ASPI-496 PO; +CARV6.2512 PO; +FURO-93 PO; +HYDR-3237 PO; +LACT1CAP35 PO; +MULT-658 PO; +OMEP-110 PO; +POTA10TA5 PO; +SUCR1TAB33 PO; +WARF2.5T32 PO
== END | disposition home or self-care (01) ==
LOC: EDSTATUS 04-30 08:00 → CFH 06:46
PROVIDERS: ATTEND Internal Medicine Cardiovascular Disease
DX: I08.8 Other rheumatic multiple valve diseases (principal); I10 Essential (primary) hypertension; R00.2 Palpitations
CPT/HCPCS: 93306